=== PATIENT | male | born 1950 | race Caucasian/White ===

== ENCOUNTER 2018-11-29 08:40 | Day surgery (SDC) | payer MEDICARE, OTHER ==
[2018-11-26 09:59] VITALS: BMI 20.3
[~2018-11-29 08:40] MED LIST: DEXAMETHASONE SOD PHOSPHATE 10 MG/ML 1 ML VIAL IV ONE; HEPARIN SODIUM,PORCINE 5,000 UNIT/ML 1 ML VIAL SQ ONE; MIDAZOLAM 2 MG/2 ML VIAL IV PRN; ONDANSETRON 4 MG/2 ML VIAL IVP ONE; ceFAZolin IN SWFI 2 GM/20 ML SYRINGE IVP ONE
[2018-11-29] MEDS: LACTATED RINGERS 1,000 ML IV SCH ×2 (09:45→09:46)
[2018-11-29 09:48] LABS: African American GFR (CKD) >90 (>60 ml/min/1.73 sqM); Anion Gap 10 mmol/L; Blood Urea Nitrogen 9 mg/dL (9-20); Calcium 9.7 mg/dL (8.4-10.2); Carbon Dioxide 28 mmol/L (22-30); Chloride 98 mmol/L (98-107); Glucose 94 mg/dL (74-99); Potassium 4.9 mmol/L (3.5-5.1); Sodium 136 mmol/L (137-145)
[2018-11-29 09:50] LABS: HCT 49.1 % (39.0-53.0); HGB 16.5 gm/dL (13.0-17.5); MCH 32.9 pg (25.0-35.0); MCHC 33.5 g/dL (31.0-37.0); MCV 98.2 fL (80.0-100.0); Mean Platelet Volume 6.8; Platelet Count 324 k/uL (150-450); RDW 13.4 % (11.5-15.5); WBC 4.6 k/uL (3.8-10.6)
[2018-11-29] MEDS ORDERED: LIDOCAINE 1% 20 ML VIAL (10MG/ML) FOR IV START INTRADERMA ONE (10:00)
--- NOTE | 2018-11-29 10:43 | P.GSHP ---
History of Present Illness H&P Date: 11/29/18 Chief Complaint: Bilateral inguinal hernias This is a 68-year-old male who presents today for laparoscopic robotic-assisted repair of bilateral inguinal hernias. Patient developed a tender mass in bilateral groins. Past Medical History Past Medical History: Deep Vein Thrombosis (DVT), Osteoarthritis (OA) Additional Past Medical History / Comment(s): DVT in leg 10 yrs. ago History of Any Multi-Drug Resistant Organisms: None Reported Past Surgical History: No Surgical Hx Reported Additional Past Anesthesia/Blood Transfusion Reaction / Comment(s): no family problems w/anesthesia Smoking Status: Current every day smoker - Past Family History Mother Family Medical History: No Reported History Medications and Allergies Home Medications Medication Instructions Recorded Confirmed Type Cholecalciferol [Vitamin D3 (25 1,000 unit PO DAILY 11/26/18 11/26/18 History Mcg = 1000 Iu)] Allergies Allergy/AdvReac Type Severity Reaction Status Date / Time No Known Allergies Allergy Verified 11/29/18 09:10 Surgical - Exam Vital Signs Temp Pulse Resp BP Pulse Ox 98.6 F 105 H 20 136/79 99 11/29/18 09:27 11/29/18 09:27 11/29/18 09:27 11/29/18 09:27 11/29/18 09:27 - General well developed, well nourished, no distress - Eyes PERRL - ENT normal pinna - Neck no masses - Respiratory normal expansion - Cardiovascular Rhythm: regular - Abdomen Abdomen: soft, non tender Hernia: inguinal (Bilateral inguinal hernia) Results - Labs 11/29/18 09:20 11/29/18 09:20 Abnormal Lab Results - Last 24 Hours (Table) 11/29/18 Range/Units 09:20 Sodium 136 L (137-145) mmol/L Diabetes panel 11/29/18 Range/Units 09:20 Sodium 136 L (137-145) mmol/L Potassium 4.9 (3.5-5.1) mmol/L Chloride 98 (98-107) mmol/L Carbon Dioxide 28 (22-30) mmol/L BUN 9 (9-20) mg/dL Creatinine 0.77 (0.66-1.25) mg/dL Glucose 94 (74-99) mg/dL Calcium 9.7 (8.4-10.2) mg/dL Calcium panel 11/29/18 Range/Units 09:20 Calcium 9.7 (8.4-10.2) mg/dL Pituitary panel 11/29/18 Range/Units 09:20 Sodium 136 L (137-145) mmol/L Potassium 4.9 (3.5-5.1) mmol/L Chloride 98 (98-107) mmol/L Carbon Dioxide 28 (22-30) mmol/L BUN 9 (9-20) mg/dL Creatinine 0.77 (0.66-1.25) mg/dL Glucose 94 (74-99) mg/dL Calcium 9.7 (8.4-10.2) mg/dL Adrenal panel 11/29/18 Range/Units 09:20 Sodium 136 L (137-145) mmol/L Potassium 4.9 (3.5-5.1) mmol/L Chloride 98 (98-107) mmol/L Carbon Dioxide 28 (22-30) mmol/L BUN 9 (9-20) mg/dL Creatinine 0.77 (0.66-1.25) mg/dL Glucose 94 (74-99) mg/dL Calcium 9.7 (8.4-10.2) mg/dL Assessment and Plan Assessment: Bilateral inguinal hernias. We'll perform laparoscopic robotic-assisted repair.
[2018-11-29] MEDS ORDERED: MIDAZOLAM 2 MG/2 ML VIAL ONE (10:57)
[2018-11-29] MEDS ORDERED: LABETALOL 5 MG/ML VIAL MDV ONE (10:57)
[2018-11-29] MEDS ORDERED: ePHEDrine SULFATE/0.9% NACL/PF 50 MG/5 ML SYRINGE IV ONE (10:57)
[2018-11-29] MEDS ORDERED: ROCURONIUM BROMIDE 10 MG/ML 10 ML VIAL IV ONE (10:57)
[2018-11-29] MEDS ORDERED: fentaNYL (PF) 50 MCG/ML 2 ML AMP ONE (10:57)
[2018-11-29] MEDS ORDERED: METOPROLOL TARTRATE 5 MG/5 ML VIAL IVP ONE (10:57)
[2018-11-29] MEDS ORDERED: SUCCINYLCHOLINE CHLORIDE 100 MG/5 ML SYR IV ONE (10:57)
[2018-11-29] MEDS ORDERED: PROPOFOL 10 MG/ML 20 ML VIAL IV ONE (10:57)
[2018-11-29] MEDS ORDERED: PHENYLEPHRINE-0.9% NACL SYG 1 MG/10 ML SYRINGE ONE (10:57)
[2018-11-29] MEDS ORDERED: LIDOCAINE 1% INJ 10MG/ML (20 ML MDV) ONE (10:57)
[2018-11-29] MEDS ORDERED: KETOROLAC 30 MG/ML 1 ML VIAL ONE (10:57)
[2018-11-29] MEDS ORDERED: NEOSTIGMINE 1 MG/ML 10 ML VIAL ONE (10:57)
[2018-11-29] MEDS ORDERED: GLYCOPYRROLATE 0.2 MG/ML 2 ML VIAL ONE (10:57)
[2018-11-29] MEDS ORDERED: ceFAZolin IN SWFI 2 GM/20 ML SYRINGE IVP ONE (11:10)
[2018-11-29] MEDS ORDERED: BUPIVACAIN-EPI 0.5%-1:200,000 30 ML VIAL SQ ONE (11:20)
--- NOTE | 2018-11-29 12:13 | P.OP ---
Date of Procedure: 11/29/18 Preoperative Diagnosis: Bilateral inguinal hernia Postoperative Diagnosis: Bilateral inguinal hernia Procedure(s) Performed: Laparoscopic robotic-assisted repair of bilateral inguinal hernia Anesthesia: MODESTO Surgeon: Phil Kovacs Estimated Blood Loss (ml): 5 Pathology: none sent Condition: stable Disposition: PACU Description of Procedure: The patient's placed on the operating table in the supine position. The patient received general anesthesia. The patient's abdomen was prepped and draped in usual sterile fashion. The skin was anesthetized 1% local Xylocaine at the incision sites. Using an 11 blade a skin incision was made at the umbilicus. The fascia was grasped with a Alejandra and then the peritoneal cavity was entered with the Veress needle. Position of the Veress needle was confirmed with a positive drop test. After adequate insufflation a 5 mm trocar was placed into the peritoneal cavity. The Laparoscope was placed the peritoneal cavity. And a robotic 8 mm trocar was placed in the right lateral position and then another [address] aced in the left lateral position. The original 5 mm trocar was exchanged for a 12 mm trocar. The patient was placed in reverse Trendelenburg and then the patient was docked to the robot. Next the peritoneum over top of the right inguinal hernia was incised and then using blunt and sharp dissection and electrocautery the hernia sac was dissected free from the floor of the inguinal canal. The hernia sac was completely reduced into the peritoneal cavity. And then using the Pro helmet hat puncher mesh the hernia was repaired. The peritoneum was then sutured with 20V lock suture. Next the peritoneum over top of the left inguinal hernia was incised and then using blunt and sharp dissection and electrocautery the hernia sac was dissected free from the floor of the inguinal canal. The hernia sac was completely reduced into the peritoneal cavity. And then using the Pro helmet hat puncher mesh the hernia was repaired. The peritoneum was then sutured with 20V lock suture. The patient was then undocked the robot. The needle was withdrawn from the peritoneal cavity. The umbilical trocar site was closed with 0 Ethibond suture. The skin was closed interrupted 3-0 Monocryl suture. Dermabond dressing was applied. Patient was sent to recovery in stable condition.
[2018-11-29 12:30] VITALS: TEMP 97.5
[2018-11-29] MEDS: HYDROmorphone 0.5 MG/0.5 ML SYRINGE IVP PRN ×3 (12:47→13:05)
[2018-11-29 13:43] VITALS: RESP 18
[2018-11-29] MEDS ORDERED: HYDROcodone/APAP 5-325MG 1 EACH TAB PO ONE (13:55)
[2018-11-29 14:53] VITALS: BP 130/69; PULSE 76
== END 2018-11-29 15:47 | disposition home or self-care (01) ==
LOC: OR 08:40
PROVIDERS: ATTEND Surgery
DX: K40.20 Bilateral inguinal hernia, without obstruction or gangrene, not specified as recurrent (principal); M19.90 Unspecified osteoarthritis, unspecified site; Z86.718 Personal history of other venous thrombosis and embolism; F17.200 Nicotine dependence, unspecified, uncomplicated; Z79.899 Other long term (current) drug therapy
CPT/HCPCS: 49650; 99283; 51702; 93005; 80048; 85027; 93975; 76870; C1781; J2250; J1644; J1100; J2710; J2405; J2001; J3010; J1885; J2370; J0330; J2704; J1170; J0690

== ENCOUNTER 2018-11-29 20:33 | Emergency (ER) | payer MEDICARE, OTHER ==
[2018-11-29 20:57] VITALS: BP 135/77; PULSE 97; RESP 18; TEMP 98.3
--- NOTE | 2018-11-29 22:04 | ED ---
General Adult HPI - General Chief complaint: Urogenital Stated complaint: Groin pain-post op Time Seen by Provider: 11/29/18 21:20 Source: patient, RN notes reviewed Mode of arrival: wheelchair Limitations: no limitations - History of Present Illness Initial comments: Patient is a pleasant 68-year-old male presenting to the emergency department with urinary retention. Patient did have laparoscopic bilateral inguinal hernia repair done today. Patient states this afternoon he was walking around and felt somewhat of a pop sensation and discomfort in the right inguinal region. Patient has noticed scrotal swelling and ecchymosis. Patient states there is some discomfort, mild. Patient states it is not severe discomfort. No nausea vomiting. Patient states he has not been able to urinate. Patient states he feels like he needs to urinate however cannot do this. Patient does have previous history of prostate problems and is on medication for his prostate. No abdominal pain. - Related Data Home Medications Medication Instructions Recorded Confirmed Cholecalciferol [Vitamin D3 (25 1,000 unit PO DAILY 11/26/18 11/29/18 Mcg = 1000 Iu)] Previous Rx's Medication Instructions Recorded Docusate [Colace] 100 mg PO BID #20 capsule 11/29/18 HYDROcodone/APAP 5-325MG [Foster 1 tab PO Q6HR PRN #10 tab 11/29/18 5-325] Allergies Allergy/AdvReac Type Severity Reaction Status Date / Time No Known Allergies Allergy Verified 11/29/18 21:10 Review of Systems ROS Statement: Those systems with pertinent positive or pertinent negative responses have been documented in the HPI. ROS Other: All systems not noted in ROS Statement are negative. Constitutional: Denies: fever Eyes: Denies: eye pain ENT: Denies: ear pain Respiratory: Denies: cough Cardiovascular: Denies: chest pain Endocrine: Denies: fatigue Gastrointestinal: Denies: abdominal pain, nausea, vomiting Genitourinary: Reports: as per HPI, urgency. Denies: dysuria Musculoskeletal: Denies: back pain Skin: Reports: as per HPI Neurological: Denies: weakness Past Medical History Past Medical History: Deep Vein Thrombosis (DVT), Osteoarthritis (OA) Additional Past Medical History / Comment(s): DVT in leg 10 yrs. ago History of Any Multi-Drug Resistant Organisms: None Reported Past Surgical History: Hernia Repair Additional Past Anesthesia/Blood Transfusion Reaction / Comment(s): no family problems w/anesthesia Past Psychological History: No Psychological Hx Reported Smoking Status: Current every day smoker Past Alcohol Use History: Rare Past Drug Use History: Marijuana - Past Family History Mother Family Medical History: No Reported History General Exam Limitations: no limitations General appearance: alert, in no apparent distress Head exam: Present: atraumatic Eye exam: Present: normal appearance Neck exam: Present: normal inspection Respiratory exam: Present: normal lung sounds bilaterally Cardiovascular Exam: Present: regular rate, normal rhythm GI/Abdominal exam: Present: soft, other (Laparoscopic incisions are clean and dry and intact.). Absent: distended, tenderness exam: Present: scrotal swelling (There is scrotal swelling, more so on the right side with some mild ecchymosis. Mild discomfort on exam.), other (Right inguinal hernia is easily reducible) Extremities exam: Present: normal inspection Neurological exam: Present: alert Psychiatric exam: Present: normal affect, normal mood Skin exam: Present: other (Mild scrotal ecchymosis) Course Vital Signs 11/29/18 20:54 Temperature 98.3 F Pulse Rate 97 Respiratory 18 Rate Blood Pressure 135/77 O2 Sat by Pulse 98 Oximetry Medical Decision Making - Medical Decision Making Patient reevaluated and resting comfortably in bed. Case was discussed in detail with Dr. Kovacs, who feels swelling is just postoperative fluid. He does recommend discharge and will follow-up patient this week. Patient updated on results and plan. Patient also advised need for follow-up with urology. Patient states he does take medication already for his prostate. - Radiology Data Radiology results: image reviewed (Scrotal ultrasound shows bilateral hydrocele) Disposition Clinical Impression: Hydrocele, Urinary retention Disposition: HOME SELF-CARE Condition: Stable Instructions (If sedation given, give patient instructions): Urinary Retention in Men (ED) Additional Instructions: Please follow-up with Dr. Kovacs this week for reevaluation. Please follow-up with urology in 1 week for reevaluation and probable removal of Martínez catheter. Return for increased pain, increased swelling, fever, worsening symptoms or other concerns. Is patient prescribed a controlled substance at d/c from ED?: No Referrals: Phil Kovacs MD [STAFF PHYSICIAN] - 1-2 days Jamie Hogue MD [STAFF PHYSICIAN] - 1-2 days Vaishali Lawson MD [STAFF PHYSICIAN] - 1-2 days Time of Disposition: 00:08
--- NOTE | 2018-11-29 23:38 | US ---
EXAM: US Scrotum CLINICAL HISTORY: ITS.REASON US Reason: Pain TECHNIQUE: Real-time ultrasound of the scrotum with color Doppler and image documentation. COMPARISON: None. FINDINGS: Right testicle: Right testicle measures 2.7 x 3.7 x 2.8 cm. No torsion. Left testicle: The left testicle measures 2.2 x 3.6 x 2.4 cm. No torsion. Epididymides: Unremarkable. Scrotum: Bilateral hydroceles. IMPRESSION: 1. No sonographic evidence of testicular torsion. 2. Bilateral hydroceles.
== END 2018-11-30 00:35 | disposition home or self-care (01) ==
LOC: EC 20:33
DX: N43.3 Hydrocele, unspecified (principal); R33.9 Retention of urine, unspecified; F17.200 Nicotine dependence, unspecified, uncomplicated; Z86.718 Personal history of other venous thrombosis and embolism; Z79.899 Other long term (current) drug therapy; Z98.890 Other specified postprocedural states
CPT/HCPCS: 51702; 76870; 93975; 99283

== ENCOUNTER 2020-12-18 | Emergency (ER) | payer OTHER | END 2020-12-18 21:26 | disposition home or self-care (01) ==